=== PATIENT | male | born 1980 | race Caucasian/White ===

== ENCOUNTER → 2017-11-09 | Outpatient (CLI) | payer OTHER | LOC: LAB SHORT 10:30 → LAB 10:30 | DX: R30.9 Painful micturition, unspecified (principal) | CPT/HCPCS: 87086 ==

== ENCOUNTER → 2019-05-13 | Outpatient (CLI) | payer BC ==
[~2019-05-13] MED LIST: Omeprazole20 M1 PO
== END | disposition home or self-care (01) ==
LOC: LAB EV 14:46 → LAB SHORT 14:46
DX: L08.9 Local infection of the skin and subcutaneous tissue, unspecified (principal)
CPT/HCPCS: 87070; 87147; 87205

== ENCOUNTER → 2025-04-05 | Outpatient (CLI) | payer BC | END | disposition home or self-care (01) | LOC: LAB 14:58 → LAB SHORT 14:58 | DX: K21.9 Gastro-esophageal reflux disease without esophagitis (principal) | CPT/HCPCS: 87338 ==